=== PATIENT | female | born 1985 | race Caucasian/White ===

== ENCOUNTER 2025-05-24 07:16 | Emergency (ER) | payer OTHER, SELFPAY ==
[2025-05-24 07:20] VITALS: BP 141/96; PULSE 86; TEMP 36.6; O2SAT 97; BMI 29.9
[2025-05-24] MEDS: FLUORESCEIN SODIUM 1 MG STRIP OP (07:30)
--- NOTE | 2025-05-24 07:42 | ED_ITS ---
HPI HPI - General Adult General Chief complaint: Eye Problems Stated complaint: EYE INJURY -05/23/25 Time Seen by Provider: 05/24/25 07:26 History of Present Illness HPI narrative: 39-year-old female presents to the emergency department for chief complaint of right eye pain. She accidentally got hit in the eye with a piece of cardboard yesterday when she was at work. She was able to continue working but then during the night it seemed to get worse. No symptoms in the left eye. The pain is moderate to severe and her last tetanus shot was a year ago. Related Data Previous Rx's ?Medication ?Instructions ?Recorded acetaminophen 300 mg-codeine 30 mg 1 tab PO Q6H PRN pa in 5 days #20 05/24/25 tablet tabs ketorolac 0.5 % eye drops (Acular) 1 drp ophthalmic (e ye) Q6H PRN 05/24/25 pain #5 mL sulfacetamide sodium 10 % eye drops 2 drp ophthalmic ( eye) Q4H #15 mL 05/24/25 Allergies Allergy/AdvReac Type Severity Reaction Status Date / Time cephalexin Allergy Severe shortness Verified 05/24/25 07:20 of breath Opioid HPI Opioid Management Most Recent Opioid Data: Last Pain Scale 8 Today, 07:20 Review of Systems ROS Narrative A ten point review of systems is negative except as noted above. PFSH PFSH Social History Little interest or pleasure in doing things: not at all Feeling down, depressed, or hopeless: not at all Exam Narrative Exam Narrative: Nurses note and vital signs reviewed and patient is not hypoxic. General: The patient appears uncomfortable in no distress Skin: Warm, dry, no pallor noted. There is no rash noted. Head: Normocephalic, atraumatic Eye: Left eye is normal. Right conjunctiva is injected. Globe is intact. Pupil is round and reactive. Fluorescein staining and Laura lamp examination shows corneal abrasion over the visual axis area Ears, Nose, Mouth, and Throat: oral mucosa is moist. Nares patent. Cardiovascular: Regular Rate and Rhythm Respiratory: Patient is in no distress, no accessory muscle use, lungs are clear to auscultation, no wheezing, rales or rhonchi Back: non-tender GI: Soft and nontender Musculoskeletal: The patient has no evidence of calf tenderness, no pitting edema, symmetrical pulses noted bilaterally Neurological: A&O, normal speech Psychiatric: Cooperative Constitutional Vital Signs, click to edit/add: Last Vital Signs Temp 97.9 F 05/24/25 07:20 Pulse 86 05/24/25 07:20 Resp 20 05/24/25 07:20 BP 141/96 H 05/24/25 07:20 Pulse Ox 97 05/24/25 07:20 O2 Del Method Room Air 05/24/25 07:20 Course Vital Signs Vital signs: Vital Signs Temperature 97.9 F 05/24/25 07:20 Pulse Rate 86 05/24/25 07:20 Respiratory Rate 20 05/24/25 07:20 Blood Pressure 141/96 H 05/24/25 07:20 Pulse Oximetry 97 05/24/25 07:20 Oxygen Delivery Method Room Air 05/24/25 07:20 Temperature 97.9 F 05/24/25 07:20 Pulse Rate 86 05/24/25 07:20 Respiratory Rate 20 05/24/25 07:20 Blood Pressure 141/96 H 05/24/25 07:20 Pulse Oximetry 97 05/24/25 07:20 Oxygen Delivery Method Room Air 05/24/25 07:20 Medical Decision Making MDM Narrative Medical decision making narrative: My clinical impression is that she has a corneal abrasion. She is prescribed Tylenol 3, Acular, and Bleph-10. Treatment diagnosis and follow-up were discussed with the patient. Differential Diagnosis Differential Diagnosis: Corneal abrasion, foreign body Discharge Plan Discharge Chief Complaint: Eye Problems Clinical Impression: Corneal abrasion Patient Disposition: Home, Self-Care Time of Disposition Decision: 07:38 Condition: Good Mode of Transportation: Private Vehicle Prescriptions / Home Meds: New acetaminophen-codeine 300-30 mg tablet 1 tab PO Q6H PRN (Reason: pain) 5 Days Qty: 20 0RF sulfacetamide sodium 10 % drops 2 drp ophthalmic (eye) Q4H Qty: 15 0RF ketorolac [Acular] 0.5 % drops 1 drp ophthalmic (eye) Q6H PRN (Reason: pain) Qty: 5 0RF Print Language: Georgian Instructions: Corneal Abrasion (ED) Referrals: Physician,Non-Staff, MD [Primary Care Provider] - 1 week
== END 2025-05-24 08:06 | disposition home or self-care (01) ==
PROVIDERS: Emergency Provider Emergency Medicine
DX: S05.01XA Injury of conjunctiva and corneal abrasion without foreign body, right eye, initial encounter (principal); W22.8XXA Striking against or struck by other objects, initial encounter
CPT/HCPCS: 99283

== ENCOUNTER 2025-11-02 19:50 | Emergency (ER) | payer OTHER, SELFPAY ==
--- NOTE | 2025-11-02 19:58 | CT_ITS ---
The [address] [address] Patient Name: AMNA TOVAR MRN: [id number] date: 1985 Sex: F Assigned Patient Location: ED.MAIN Current Patient Location: Accession/Order Number: [id number] Exam Date: 11/02/2025 20:25 Report Date: 11/02/2025 20:50 At the request of: MARIN LI MD Procedure: CT facial bones wo con CT facial bones wo con 11/02/2025 8:29 PM SIGNS AND SYMPTOMS: ^dog bite to right temporal area TECHNIQUE: Multidetector CT axial slices of the facial bones were obtained. Helical, sagittal, coronal, and 3-D reconstructions were performed and viewed on a separate workstation and reviewed to further define anatomy and possible pathology. CT was performed with one or more of the following dose reduction techniques: Automated exposure control, adjustment of the mA and/or kV according to patient size, or use of iterative reconstruction technique. COMPARISON: None. FINDINGS: Fracture: None. Paranasal sinuses and mastoids: Well aerated. Soft tissue swelling: Soft tissue swelling is noted along with subcutaneous emphysema along the right perimandibular, right perizygomatic, and right superficial temporal soft tissues with laceration posterior to the lateral aspect of the right orbit. Globes: Intact. Upper aerodigestive tract: Within normal limits. Joints: Intact. Temporal mandibular joints: Intact. Infratemporal fossa: Within normal limits. CT/CT facial bones wo con IMPRESSION: No evidence of fracture or dislocation. Soft tissue swelling is noted along with subcutaneous emphysema along the right perimandibular, right perizygomatic, and right superficial temporal soft tissues with laceration posterior to the lateral aspect of the right orbit. Impression dictated by: Scar Calderón M.D. 11/02/2025 8:50 PM Dictation Location: [place] [address] Electronically authenticated by: [id number] Y Date: 11/02/2025 20:50
--- NOTE | 2025-11-02 20:00 | ED_ITS ---
HPI - Animal Bite General Chief Complaint: Animal Bite Stated Complaint: BIT BY A DOG Time Seen by Provider: 11/02/25 19:54 History of Present Illness HPI narrative: This 40-year-old female presents for evaluation of a dog bite to the right side of her face. She has an approximately 3 cm elliptical/ flap type dog bite to the right lateral temporal area of her face. She also has a puncture wound to the dorsal aspect of the right hand. The patient states that her 2 dogs got into a fight and she was trying to break up the fight when she got bit by the dog. Her last tetanus shot was approximately 1 year ago. She states that the dog bit bit her is a pitbull with behavioral issues and this is not the first time it has bit someone. Related Data Previous Rx's ?Medication ?Instructions ?Recorded acetaminophen 300 mg-codeine 30 mg 1 tab PO Q6H PRN pa in 5 days #20 05/24/25 tablet tabs ketorolac 0.5 % eye drops (Acular) 1 drp ophthalmic (e ye) Q6H PRN 05/24/25 pain #5 mL sulfacetamide sodium 10 % eye drops 2 drp ophthalmic ( eye) Q4H #15 mL 05/24/25 Allergies Allergy/AdvReac Type Severity Reaction Status Date / Time cephalexin Allergy Severe shortness Verified 05/24/25 07:20 of breath Review of Systems ROS Status of ROS 10 or more systems reviewed and unremark able except as noted in history and below PFSH PFSH Social History Little interest or pleasure in doing things: not at all Feeling down, depressed, or hopeless: not at all Exam Narrative Exam Narrative: Vital signs and Nursing Notes reviewed: Patient is afebrile, tachycardic, blood pressure is stable, she is not hypoxic with pulse ox of 97% on room air General: Awake, alert, oriented, tearful uncomfortable appearing adult female, GCS 15, no respiratory distress HEENT: Normocephalic, approximately 3 cm elliptical/ flap type laceration from d og bite to the right temporal area of the face. This does not include the eye. Minimal active bleeding, local tenderness and bruising noted. Pupils are equal and reactive, no hemotympanum noted Neck: Supple, no neck injury Chest: Lungs are clear to auscultation with good air entry, there is no wheezing rhonchi or rales appreciated no accessory muscle use, patient is speaking in complete sentences-no chest wall tenderness to palpation CVS: Regular rate and rhythm S1-S2, no murmurs rubs or gallops, pulses are brisk and equal bilaterally Extremities: Moving all extremities, no lower extremity tenderness or swelling noted, puncture wound to the dorsal aspect of overlying 3rd metacarpal of right hand, no active bleeding, neurovascularly intact Skin: Normal in appearance without rash,pallor, petechiae or purpura Neuro: No focal deficits Constitutional Vital Signs, click to edit/add: Last Vital Signs Temp 98.4 F 11/02/25 20:26 Pulse 122 H 11/02/25 20:26 Resp 20 11/02/25 20:26 BP 114/84 11/02/25 20:26 Pulse Ox 97 11/02/25 20:26 O2 Del Method Room Air 11/02/25 20:26 Course Vital Signs Vital signs: Vital Signs Temperature 98.4 F 11/02/25 20:26 Pulse Rate 122 H 11/02/25 20:26 Respiratory Rate 20 11/02/25 20:26 Blood Pressure 114/84 11/02/25 20:26 Pulse Oximetry 97 11/02/25 20:26 Oxygen Delivery Method Room Air 11/02/25 20:26 Temperature 98.4 F 11/02/25 20: Pulse Rate 122 H 11/02/25 20:26 Respiratory Rate 20 11/02/25 20:26 Blood Pressure 114/84 11/02/25 20:26 Pulse Oximetry 97 11/02/25 20:26 Oxygen Delivery Method Room Air 11/02/25 20:26 MDM - Animal Bite MDM Narrative Medical decision making narrative: 40-year-old female presents for evaluation after she was trying to break up a fight between her 2 dogs and got bit in the right side of her face lateral to her right eye but not involving the eye. She also has a puncture wound on her right hand. She states the dog's immunizations are mostly up-to-date. She did sustain approximately 3 cm flap type laceration to the lateral aspect of her face. A CT scan of the facial bones showed the soft tissue deformity but otherwise no bony fracture. X-ray of the right hand where the patient has a pun cture wound overlying the right third metacarpal was also ordered and reviewed by radiology and does not show any acute findings. An IV was placed upon arrival and she was medicated with IV fluids, 3 g of Unasyn, Zofran and morphine. Her tetanus is up-to-date. The laceration on her face was closed with a double layer closure. There was good wound edge approximation. She was given a Percocet for pain prior to discharge and discharged home with an Augmentin for the morning before the pharmacies are open and Percocet. I suggested that she return to the emergency department or follow-up in 24 to 48 hours for a wound check and return to the emergency department for severe pain, redness, swelling, fever, purulent drainage or any concerns. I also suggested that she soak her right hand where she has a puncture wound from the dog bite and warm Epsom salt water. The patient and her partner verbalized understanding. She was discharged home in stable condition. Discharge Plan Discharge Chief Complaint: Animal Bite Clinical Impression: Dog bite, Complex laceration of face, Puncture wound of hand Patient Disposition: Home, Self-Care Time of Disposition Decision: 21:43 Condition: Good Prescriptions / Home Meds: No Action acetaminophen-codeine 300-30 mg tablet 1 tab PO Q6H PRN (Reason: pain) 5 Days Qty: 20 0RF sulfacetamide sodium 10 % drops 2 drp ophthalmic (eye) Q4H Qty: 15 0RF ketorolac [Acular] 0.5 % drops 1 drp ophthalmic (eye) Q6H PRN (Reason: pain) Qty: 5 0RF Print Language: Uzbek Instructions: Animal Bite (ED), Laceration (ED), Puncture Wound (ED) Additional Instructions: Soak your hand in warm Epsom salt water, you can wash your face with warm soap and water in the shower. Please follow-up for a wound check in 24 to 48 hours. Use antibiotics as directed, pain medications as needed. Return to the emergency department for severe pain, redness, swelling, fevers or any concerns. Your sutures can be removed in approximately 7 days. Referrals: Physician,Non-Staff, MD [Primary Care Provider] - 1 week Discharge Date/Time: 11/02/25 22:15 Procedures ED Procedure Instructions Procedures Procedures: Procedure note: Facial laceration repair; patient was taken for CT scan of the facial bones. CT scan was negative for acute findings. She was medicated with IV morphine, Zofran and IV fluids. 3 g of Unasyn were infused prior to initiation of the laceration. The wound edges were infiltrated with 1% lidocaine and the wound was copiously irrigated with Betadine and normal saline and then irrigated copiously with normal saline. 5, 4-0 Vicryl sutures were placed in the muscular layer of the wound to approximate the wound edges and muscular layers, 13, 4 and 5-0 Ethilon sutures were placed into the laceration to close it. Patient tolerated procedure well. Wound care instructions and close follow-up was discussed with the patient and her partner.
--- NOTE | 2025-11-02 20:00 | XR_ITS ---
The [address] [address] Patient Name: AMNA TOVAR MRN: [id number] date: 1985 Sex: F Assigned Patient Location: ED.MAIN Current Patient Location: ER Accession/Order Number: [id number] Exam Date: 11/02/2025 20:29 Report Date: 11/02/2025 20:43 At the request of: MARIN LI MD Procedure: XR hand RT min 3V XR hand RT min 3V 11/02/2025 8:34 PM SIGNS AND SYMPTOMS: ^dog bite to hand PROTOCOL: 3 views of the right hand COMPARISON: None FINDINGS: The bones are in anatomic alignment. The joint spaces are preserved. There is no fracture or dislocation. Subcortical cystic changes noted at the base of the capitate. Degenerative changes are noted at the fifth metacarpophalangeal joint. XR/XR hand RT min 3V IMPRESSION: No fracture or dislocation. Degenerative changes are noted in the fifth metacarpophalangeal joint. Mild degenerative changes are noted at the junction of the capitate and lunate. Impression dictated by: Scar Calderón M.D. 11/02/2025 8:43 PM Dictation Location: [place] [address] Electronically authenticated by: [id number] Y Date: 11/02/2025 20:43
[2025-11-02] MEDS: MORPHINE SULFATE 4 MG/ML VIAL IV (20:18)
[2025-11-02] MEDS: AMPICILLIN SODIUM/SULBACTAM NA 3 GM in 0.9 % SODIUM CHLORIDE 100 ML IV (20:19)
--- OUTSIDE RECORDS SUMMARY | 2025-11-02 20:22 | XMS_ITS | Patient Health Record ---
Author Organization [facility] vices Address [address] [place], [place] [id number] Support Name Relationship Address Phone Agnieszka Fan Emergency Contact Unknown Johnny Rothman Guarantor Unknown [phone] Allergies No Known Allergies Reason For Referral No Information Medications Medication SIG (Take, Route, Frequency, Duration) Notes Start Date End Date Status Splint Wrist Brace/Left-Righ t - Miscellaneous as directed wrist daily 1 - Left, 1 Right 09/03/2022 ActivePropranolol HCl 40 MG Tablet1 tablet Orally Twice a day; Duration: 90 days 05/29/2022ctiveDULoxetine HCl 60 MG Capsule Delayed Release Particles1 capsule Orally Once a day; Duration: 90 days09/03/2022ctivehydrOXYzine HCl 25 MG Tablet 1 tablet at bedtime as needed Orally at bedtime; Duration: 90 days06/30/2022 Active Social History Tobacco Use: Social History Observation Description Date Details (start date - stop date) Current Smoker 02/14/2003 - NA Sex Assigned At : Social History Observation Description Sex Assigned At Female Social History Household:Social InfoQuestionAnswerNotesHouseholdNumber of adults in household:2 Number of children in household:0Drugs/Alcohol/Caffeine:Social InfoQuestion AnswerNotesDrugsHave you used drugs other than those for medical reasons in the past 12 months?NoCaffeineIntake:more than 4 cups per dayTobacco Use:Social Info QuestionAnswerNotesTobacco Use/SmokingTobacco use:current every day smoker? When did you start smoking?02/14/2003Additional DetailsCategorySocial InfoOptions DetailsMiscellaneous:Occupation:works full-timeEducation LevelCollegeBarriers to LearningNoneLearning PreferenceDoing or practicingSafetyPatient feels safe in relationshipsYesDrugs/Alcohol/Caffeine:Do you drink alcohol?No Problems Problem Type SNOMED Code ICD Code Onset Dates Problem Status W/U Status Risk Notes Problem Migraine without aur a, not refractory (245149432) Migraine without aura and without status migrainosus, not intractable (G43.009) ActiveconfirmedProblemNeuropathy (667347401)Neuropathy (G62.9)Activeconfirmed ProblemAnxiety depression (328927218)Anxiety with depression (F41.8)Active confirmedProblemCarpal tunnel syndrome (57245896)Carpal tunnel syndrome on both sides (G56.03)Activeconfirmed Plan Of Treatment No Information Insurance Providers Payer Name Payer Address Payer Phone Subscriber Number Group Number Insured Name Patient Relationship to Insured Coverage Start Date Coverage End Date [facility] [address] [place] [address] [id number] Elle Rothman - patient is the [id number] 2020Medicaid [facility] [address] [place], [place] [id number], AndreaSelf - patient is the [id number] 2020 Medical (General) History Medical History History ICD Code neuropathy AnxietySurgical History Surgery Date(Month/Year)
--- OUTSIDE RECORDS SUMMARY | 2025-11-02 20:22 | XMS_ITS | Clinical Summary ---
Author Organization [employer] [facility] tem Address [id number] [address] [place] [address] Care Team Providers Care Patch Driller Name Role Phone Alissa Briceño DO Primary Care Provider Allergies No known active allergies Medications MedicationSigDispense QuantityRefillsLast FilledStart DateEnd DateStatus gabapentin (NEURONTIN) 100 mg capsule Take 1 capsule (100 mg total) by mouth in the morning and at bedtime.Active propranoloL (INDERAL) 40 mg tablet Take 1 tablet (40 mg total) by mouth in the morning and 1 tablet (40 mg total) before bedtime.Active DULoxetine (CYMBALTA) 20 mg capsule Take 2 capsules (40 mg total) by mouth in the morning and 2 capsules (40 mg total) before bedtime.Active meloxicam (MOBIC) 15 mg tablet Take 1 tablet (15 mg total) by mouth in the morning. 30 tablet 02/16/2023ctive Social History Tobacco UseTypesPacks/DayYears UsedDateSmoking Tobacco: Every DayCigarettes Smokeless Tobacco: Never Tobacco Cessation:Ready to Q uit: Not Asked; Counseling Given: Not Answered Alcohol UseStandard Drinks/WeekCommentsNot Currently0 (1 standard drink = 0.6 oz pure alcohol)ChildcareAnswerDate VgjlpgjkDekvcpcujMmnxkwk80/12/2019Employment AnswerDate ZnnottniNiqflljhioUtfilzx97/12/2019Hunger ScreeningAnswerDate RecordedWithin the past 12 months we worried whether our food would run out before we got money to buy more.Never True02/16/2023Within the past 12 months the food we bought just didn't last and we didn't have money to get more.Never True02/16/2023CommentsUnknownSex and Gender InformationValueDate RecordedSex Assigned at BirthNot on fileLegal HleYfwdgq09/06/2015 11:45 AM EDT Gender IdentityNot on fileSexual OrientationNot on file Last Filed Vital Signs Vital SignReadingTime TakenCommentsBlood Qgpodymh356/9211/02/2023 10:55 PM EST Ncinh35662/18/2023 10:55 PM FBCMrmmggeyore00.1 ??C (98.8 ??F)11/02/2023 9:46 PM ESTRespiratory Nncz293701/03/2023 10:55 PM ESTOxygen Kmbunmzxpw57%11/02/2023 10:55 PM ESTInhaled Oxygen Concentration--Mahjtc78.4 kg (197 lb)11/02/2023 9:46 PM EST Tqhqpb532.6 cm (5' 6 )11/02/2023 9:46 PM ESTBody Mass Index31.8101/03/2023 9:46 PM EST Plan of Treatment Health MaintenanceDue DateLast DoneCommentsDepression Aawlarrkn30/06/1998 DTaP,Tdap and Td Vaccines (1 - Tdap)2005Pap Smear2007dult BMI Adqbqyosu86Tobacco Mwokslyxl32Influenza Ebtzjxl9207/17/2025 Medical Devices Not on file Insurance * Guarantor: Johnny RothmanAccount TypeRelation to PatientDate of PhoneBilling AddressWorkers [id number] [address] [place] [address] Care Teams Team MemberRelationshipSpecialtyStart DateEnd Date Alissa Briceño DO [address] [place] [address] PCP - GeneralFamily Medicine02/16/23
[2025-11-02 20:26] VITALS: BP 114/84; PULSE 122; TEMP 36.9; O2SAT 97; BMI 33.4
[2025-11-02] MEDS: LIDOCAINE HCL 1% PF 50 MG/5 ML VIAL INJ (21:49)
[2025-11-02] MEDS: OXYCODONE HCL/ACETAMINOPHEN 5MG/325MG 2 TAB PO (22:06)
[2025-11-02] MEDS: AMOXICILLIN/POT CLAV 875-125 MG TABLET 1 TAB PO (22:06)
[2025-11-02] MEDS: OXYCODONE HCL/ACETAMINOPHEN 5MG/325MG 1 TAB PO (22:07)
[2025-11-02] MEDS: LIDOCAINE HCL 1% 100 MG/10 ML MDV INJ (22:07)
== END 2025-11-02 22:15 | disposition home or self-care (01) ==
PROVIDERS: Emergency Provider Emergency Medicine
DX: S01.81XA Laceration without foreign body of other part of head, initial encounter (principal); S61.431A Puncture wound without foreign body of right hand, initial encounter; W54.0XXA Bitten by dog, initial encounter
CPT/HCPCS: 12052; 70486; 73130; 76376; 96365; 96375; 99284; J0295; J2270; J2405

== ENCOUNTER 2025-11-15 17:35 | Emergency (ER) | payer OTHER, SELFPAY ==
--- OUTSIDE RECORDS SUMMARY | 2018-09-03 09:36 | XMS_ITS | Continuity of Care Document ---
Author Organization [facility] ([place], [place]) Address [address] [place] [address] Phone Care Team Providers Care Multimedia Artist Name Role Phone Juan Dwyer MD Unavailable Unavailable Allergies, Adverse Reactions, Alerts Substance Reaction Status Criticality No Known Allergies Active No Inform ation Medications Medication Instructions Dosage Effective Dates (start - stop) Status Comments sertraline 100 mg tablet take 1/2 tablet by oral route for 6 days then take 1 tablet every day - Active Procedures Procedure Date PREV VISIT, EST, AGE 18-39 Advance Directives Directive Yes / No Effective Date File Name No Information Encounters Encounter Description Practice Location Reason(s) For Visit Diagnoses Date Provider Providers Copied on Encounter [facility] ([place], [place]), [address] [place] [address], [id number], tel:[phone] [facility] ([place], [place]) No Information 8 Reymundo Martinez. [address] [place] [address], [id number] , [place]. tel:[phone] PREV VISIT, EST, AGE 18-40 [facility] ([place], [place]), [address] [place] [address], [id number], tel:[phone] 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 [address], [place], [id number] , [place]. tel:[phone] [facility] ([place], [place]), [address], [place], [id number], tel:[phone] [facility] ([place], [place]) Est care (chief complaint) Body mass index (BMI) 27.0-27.9, adultEstablishing care with new doctor, encounter forAnxietyNumbness and tingling of left handParesthesia of skin 8 Zeeshan Aaron. [address], [place], [id number] , [place]. [phone] Family History Family Member Type Diagnosis Age At Onset Brother Problem (finding) Alive and well Sister Problem (finding) attention deficit hyper activity disorder Father Problem (finding) Alive and well Mother Problem (finding) Alive and well Sister Problem (finding) Alive and well Mother Problem (finding) hypertension Father Problem (finding) hypertension Payers Payer name Insurance type Covered democrat ID Authoriza tion(s) [facility] [id number] Medicaid Wrap - [employer] [facility] [id number] Social History Type Description Quantity Date Captured Comments Alcohol Use Details Unknown Caffeine Use Details Unknown Tobacco Use Status Smoking Status No Information Sex Female Sexual Orientation Lesbian, johnston or homosexual O Gender Identity Female Chief Complaint And Reason For Visit No Information Reason For Referral Reason For Referral No Information Plan Of Treatment Date Type Action Status Goal Tobacco cessation counseling completed Goal Dietary management education , guidance, and counseling completed Goal Tobacco cessation counseling completed Goal Lifestyle education regardin g diet completed Referral Ordered: Orthopedic Surgery (related to Numbness and tingling of left hand) [id number] Ordered: Referrals: Orthopedic Surgery. Evaluate and treat ordered History Of Present Illness Encounter Date Complaint History Of Prese nt Illness annual exam Currently pregna nt: no. Last LMP was 08/15/2018. The patient does use tobacco. Tobacco cessation has been discussed. She formerly drank alcohol. Additional information: Patient is here for annual exam. States she is not in a relationship, but when she is she is in a same sex relationship. Has never had an abnormal pap test. Declines STD screen or BC. Est care Here to [facility]. Currently residing at [facility]. In recovery for stimulant addiction. 34 days sober after a relapse. On no meds at this time. Also needs scheduled for PAP. 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 Kathy LOMAX- Noted above. Patient reports bilateral hand numbness and tingling. She was worn wrist splint and the right has improved but the left N/T remains and seems to be worsening. She is a smoker. Functional Status Date Functional Assessmen t No Information Instructions Date Instruction Additional Infor ansley Discussed possible S TDs in a same sex relationship. Patietn states understanding. Related to - STD education Encouraged monthly B SE. Recommend calcium 1000mg QD. Encouraged good dietary intake and exercise. Laboratory specimens sent to lab. Patient to call in 2 weeks if desires results. 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
[2025-11-15 18:03] VITALS: BP 142/78; PULSE 85; TEMP 36.7; O2SAT 98; BMI 33.6
--- OUTSIDE RECORDS SUMMARY | 2025-11-15 18:15 | XMS_ITS | Patient Health Record ---
Author Organization [facility] Address [address] [place], [place] [id number] Support Name Relationship Address Phone Agnieszka Fan Emergency Contact Unknown Johnny Rothman Guarantor Unknown [phone] Allergies No Known Allergies Reason For Referral [...] Problem Migraine without aur a, not refractory (388674311) Migraine without aura and without status migrainosus, not intractable (G43.009) ActiveconfirmedProblemNeuropathy (799635965)Neuropathy (G62.9)Activeconfirmed ProblemAnxiety depression (181731968)Anxiety with depression (F41.8)Active confirmedProblemCarpal tunnel syndrome (58134791)Carpal tunnel syndrome on both sides (G56.03)Activeconfirmed Plan Of Treatment No Information Insurance Providers Payer Name Payer Address Payer Phone Subscriber Number Group Number Insured Name Patient Relationship to Insured Coverage Start Date Coverage End Date [facility] [address] [place] [address] [id number] Elle Rothman - patient is the [id number] [address] [facility] [address] [place], [place] [id number], AndreaSelf - patient is the [id number] 2020 Medical (General) History Medical History History ICD Code neuropathy AnxietySurgical History Surgery Date(Month/Year)
--- OUTSIDE RECORDS SUMMARY | 2025-11-15 18:15 | XMS_ITS | Clinical Summary ---
Author Organization [facility] tem Address [id number] [address] [place] [address] Care Team Providers Care Employment Clerk Name Role Phone Alissa Briceño DO Primary Care Provider [phone] Allergies No known active allergies Medications MedicationSigDispense [...] standard drink = 0.6 oz pure alcohol)ChildcareAnswerDate EhaooxnhZttzijifmLunxyvp78/12/2019Employment AnswerDate FtilqxunMhjhljgfocShwzeld26/12/2019Hunger ScreeningAnswerDate RecordedWithin the past 12 months we worried whether our food would run out before we got money to buy more.Never True02/16/2023Within the past 12 months the food we bought just didn't last and we didn't have money to get more.Never True02/16/2023CommentsUnknownSex and Gender InformationValueDate RecordedSex Assigned at BirthNot on fileLegal GmuIzqtmh52/06/2015 11:45 AM EDT Gender IdentityNot on fileSexual OrientationNot on file Last Filed Vital Signs Vital SignReadingTime TakenCommentsBlood Btdegyva228/9211/02/2023 10:55 PM EST Dgajm77544/18/2023 10:55 PM VDXAdehqothuvl65.1 ??C (98.8 ??F)11/02/2023 9:46 PM ESTRespiratory Nemz364301/03/2023 10:55 PM ESTOxygen Lergvdlapg94%11/02/2023 10:55 PM ESTInhaled Oxygen Concentration--Tbvebl16.4 kg (197 lb)11/02/2023 9:46 PM EST Ktyqhl746.6 cm (5' 6 )11/02/2023 9:46 PM ESTBody Mass Index31.8101/03/2023 9:46 PM EST Plan of Treatment Health MaintenanceDue DateLast DoneCommentsDepression Cfxroaoco95/06/1998 DTaP,Tdap and Td Vaccines (1 - Tdap)2005Pap Smear2007dult BMI Rvzrijxbu44/18/98810001/03/2023Tobacco Mzqelspem09/18/2024Influenza Vaccine 07/17/2025 Medical Devices Not on file Insurance * Guarantor: Johnny RothmanAccount TypeRelation to PatientDate of PhoneBilling AddressWorkers [id number] [address] [place] [address] Care Teams Team MemberRelationshipSpecialtyStart DateEnd Date Alissa Briceño DO [address] [place] [address] PCP - [facility]Mer[facility]ly [facility]02/16/23
== END 2025-11-15 18:11 | disposition left against medical advice (07) ==
LOC: ER 18:12
PROVIDERS: Emergency Provider Emergency Medicine
DX: Z53.21 Procedure and treatment not carried out due to patient leaving prior to being seen by health care provider (principal)
CPT/HCPCS: 99281